=== PATIENT | female | born 1990 | race Caucasian/White ===

== ENCOUNTER → 2020-09-16 16:26 | Outpatient (CLI) | payer BC, SELFPAY | PROVIDERS: PCP Student in an Organized Health Care Education/Training Program; Visit Provider Obstetrics & Gynecology | DX: Z03.818 Encounter for observation for suspected exposure to other biological agents ruled out (principal) | CPT/HCPCS: 87635; C9803; U0002 ==

== ENCOUNTER 2020-09-18 18:55 | Inpatient (IN) | payer BC, SELFPAY ==
[2020-09-18 19:23] VITALS: BMI 32.6
[2020-09-18 19:27] VITALS: BP 157/88; PULSE 76; TEMP 37.2; O2SAT 97
[2020-09-18] MEDS: 0.9% Saline Lock 10 ML Syringe IV (19:30)
--- NOTE | 2020-09-18 19:32 | HP.PCM.OB_ITS ---
HPI - General General Date of Admission: 09/18/20 HPI Narrative SAM DIAZ, is a 29 F who presents at 40w6d by LMP for induction of labor for postdates. [facility] Medical History (Updated 09/18/20 @ 20:08 by Page Small) Anxiety Home Medications Tablet 1 tab PO/SL DAILY 09/18/20 [History Last Taken 09/18/20 11:00] Allergy/AdvReac Type Severity Reaction Status Date / Time No Known Allergies Allergy Verified 09/18/20 19:45 Surgical History (Updated 09/18/20 @ 20:08 by Page Small) History of surgery Social History Smoking Status: Never smoker History Elective abortions Hx Para 0 Spontaneous abortions Hx # Term Pregnancies Ectopic pregnancies Hx # Pregnancies Multiple births # of living children NST FHR Rate Baby A Baseline: 155 Variability:: Moderate Accelerations:: 15 x 15 Decelerations:: None FHR Category:: Category II Uterine Activity:: Irregular ROS Constitutional Constitutional: Reports systems reviewed and no addt'l complaints, except as documented; Denies headache(s) Eyes Eyes: Denies acute decrease in peripheral vision, blurry vision or change in vision ENT HEENT: Reports systems reviewed and no addt'l complaints, except as documented Cardiovascular Cardiovascular: Denies chest pain or dizziness Respiratory/Chest Respiratory/Chest: Denies cough, dyspnea, dyspnea on exertion, shortness of breath at rest or shortness of breath with exertion Gastrointestinal Gastrointestinal: Denies abdominal pain, diarrhea, nausea or vomiting Genitourinary Genitourinary: Denies abdominal discomfort or movement Musculoskeletal Musculoskeletal: Denies limited range of motion Integumentary Integumentary: Reports systems reviewed and no addt'l complaints, except as documented Neurologic Neurologic: Reports systems reviewed and no addt'l complaints, except as documented Psychiatric Psychiatric: Reports systems reviewed and no addt'l complaints, except as documented Endocrine Endocrinology: Reports systems reviewed and no addt'l complaints, except as documented Hematologic/Lymphatic Hematologic/Lymphatic: Reports systems reviewed and no addt'l complaints, except as documented Allergic/Immunologic Allergic/Immunologic: Reports systems reviewed and no addt'l complaints, except as documented Vital Signs Vital Signs Vital Signs: 09/18/20 19:27 Pulse Rate 76 Blood Pressure 157/88 H BP Systolic 157 BP Diastolic 88 Physical Exam Narrative GBS negative 1hr GCT 95 nml RPR negative Rubella Immune HBsAG negative HepC negative HIV negative O positive, antibody screen negative GC/CT negative Urine tox screen negative COVID 19 negative on 09/09/20 Const alert and oriented x3 General Appearance: cooperative Orientation / Consciousness: awake, oriented to person, oriented to place and oriented to time Exam Limitations: no limitations HEENT normocephalic Head and Scalp: normal to inspection, normocephalic and atraumatic Face and Sinus: normal facial exam Eyes General Eye: normal appearance of both eyes Neck full ROM Chest Chest: symmetrical chest wall rise Resp normal respiratory effort and normal air movement Auscultation: clear to auscultation bilaterally Cardio regular rate, regular rhythm, S1 normal heart sound, S2 normal heart sound, no murmurs, no rub, no gallops and no clicks GI normal to inspection, nondistended, normoactive bowel sounds and non-tender appearance of the vagina normal Narrative: Huntley catheter placed in cervical os, 30ml NS instilled, patient tolerated well. Bladder / Kidney Exam: no CVA tenderness Manual OB Exam: estimated gestational size appropriate, presentation cephalic, dilated 1.5, effaced 60 and station -2 Amniotic Fluid: no amniotic fluid noted Back/Spine normal ROM Extremity normal to inspection and full ROM Skin no rashes or lesions noted Neuro oriented x3, CN's II-XII intact bilaterally and moves all extremities Sensorium / Orientation: awake, alert and oriented to person Motor Exam: clonus absent Deep Tendon Reflexes: Rt Patellar (L4): 2+ and Lt Patellar (L4): 2+ Assessment & Plan (1) Nulliparity: (2) Family history of hemophilia: (3) History of anxiety: (4) S/P PDA repair: (5) Encounter for induction of labor: (6) Post-dates : PLAN: 1) Admit to labor and delivery for postdates Induction of labor 2) IV and routine labs. 3) BP elevated upon admission, will order preeclampsia labs 4) Cytotec and huntley for cervical ripening and then will start pitocin 5) Pain management and may have epidural upon request 6) COVID 19 negative 7) GBS negative 8) Continuous EFM 9) collaborative physician and updated on patient status and admission.
[2020-09-18 19:36] VITALS: BP 148/75; PULSE 82
[2020-09-18 19:46] LABS: Absolute Lymphocyte Count 2.23 X10^3/uL (0.83-4.51); Absolute Neutrophil Count 7.5 X10^3/uL (2.0-7.7); Basophil# 0.03 X10^3/uL; Basophil% 0.3 % (0-1); Eosinophil# 0.22 X10^3/uL; Hematocrit 36.6 % (37-47); Lymphocyte # 2.23 X10^3/ul (0.83-4.51); Lymphocyte % 20.5 % (19-41); Mean Corp Hgb Conc 32.8 g/dL (32-36); Mean Corpuscular Hgb 29.9 pg (27.0-32.0); Mean Corpuscular Volume 91.3 fL (81-99); Mean Platelet Vol. 13.7 fl (6.2-12.0); Monocyte# 0.85 X10^3/uL; Monocyte% 7.8 % (0-10); NRBC Flagged by Analyzer 0 % (0-5); Neutrophil % 68.9 % (47-70); POSITIVE MORPHOLOGY YES; Platelet Count 142 K/mm3 (150-450); RBC Distribution Width CV 13.2 % (11.6-14.6); RBC Distribution Width SD 42.7 fl (35.1-43.9); Red Blood Count 4.01 M/mm3 (4.2-5.4); White Blood Count 10.9 K/mm3 (4.4-11.0)
[2020-09-18 19:54] LABS: Differential Indicated SCAN CRITERIA MET
[2020-09-18] MEDS: 0.9% Normal Saline Single 100 ML IV.SOLN. INTRA-UTER (19:55)
[2020-09-18 20:20] LABS: AST(SGOT) 19 U/L (15-37); Alanine Aminotransfer ALT/SGPT 14 U/L (13-56); Creatinine, Serum 1.03 mg/dL (0.55-1.02); Differential Comment SCANNED; EST Glomerular Filtration Rate 67 mL/min (>60); Est Glom Filt Rate - Afr Amer 81 mL/min (>60); Estimated Creatinine Clearance 69.59 ml/min; LDH 169 U/L (84-246); Uric Acid 7.1 mg/dL (2.6-6.0)
[2020-09-18 20:39] VITALS: BP 133/73; PULSE 64
[2020-09-18 21:12] LABS: Protein, Urine (Random) 54.3 mg/dL (<11.9); Protein:Creat Ratio 1607 mg/g CRE (0-200)
[2020-09-18 22:04] VITALS: BP 137/68; PULSE 75; TEMP 37.2
[2020-09-18 22:59] VITALS: O2SAT 96
[2020-09-18 23:00] VITALS: BP 126/60; PULSE 60; TEMP 36.9; O2SAT 96
[2020-09-19] VITALS (73 sets, daily range): BP systolic 115–170; BP diastolic 56–95; PULSE 64–137; RESP 14–16; TEMP 36.4–37.4; O2SAT 82–99
[2020-09-19] MEDS: Lactated Ringers 1,000 ML 50 ML IV (00:17)
[2020-09-19] MEDS: 0.9% Saline Lock 10 ML Syringe IV (00:17)
[2020-09-19] MEDS: Oxytocin 30 units/NS 500 ml 30 UNITS/500 ML IV.SOLN IV (00:17)
[2020-09-19] MEDS: Mag Hydrox/Al Hydrox/Simeth 30 ML UDC PO (03:50)
[2020-09-19] MEDS: Lactated Ringers 500 ML 999 ML IV (06:00)
[2020-09-19] MEDS: fentaNYL-bupivacaine (epidural) 100 ML BAG EPIDURAL ×2 (07:02→12:42)
[2020-09-19] MEDS: Lactated Ringers 1,000 ML 200 ML IV ×2 (10:50→16:03)
[2020-09-19] MEDS: DiphenhydrAMINE 50 MG/ML Syringe 25 MG IV (14:47)
--- NOTE | 2020-09-19 19:07 | PN_ITS ---
Progress Note Patient's pain is getting progressively worse throughout the day. Started out as pressure. Pain is constant. Attempt was made to replace the epidural, her pain was still poorly controlled. She was 7 when she had artificial rupture membranes this morning. Progressed very slowly to anterior lip. Is been anterior lip for over an hour and station is still -1. At this point, I discussed with the patient she could try to attempt to push and I could see if I could reduce the anterior lip. However, when I checked her with a contraction a nd try to reduce it I was unable to do so. Discussed with the patient the other option would for you to proceed with a section. Patient elects to proceed with section. We will consult with anesthesia as to plan for anesthesia during the delivery.
[2020-09-19] MEDS: Cefazolin 2 GM in 0.9% Normal Saline 100 ML IV (19:18)
[2020-09-19] MEDS: Carboprost Tromethamine 250 MCG/ML Ampul IM ×2 (19:47→19:51)
[2020-09-19] MEDS: Methylergonovine 0.2 MG/ML Ampul IM (19:49)
[2020-09-19] MEDS: Oxytocin 30 units/NS 500 ml 30 UNITS/500 ML IV.SOLN 167 UNITS IV (20:57)
[2020-09-19] MEDS: Ketorolac 30 MG/ML Syringe IV (21:36)
[2020-09-19] MEDS: Lactated Ringers 1,000 ML 100 ML IV (23:55)
[2020-09-20] VITALS (7 sets, daily range): BP systolic 105–144; BP diastolic 56–78; PULSE 85–103; RESP 16–18; TEMP 36.1–36.7; O2SAT 95–97
[2020-09-20] MEDS: Acetaminophen 500 MG Tablet 1000 MG PO ×4 (00:07→17:55)
[2020-09-20] MEDS: Ketorolac 30 MG/ML Syringe IV ×3 (03:39→16:07)
--- NOTE | 2020-09-20 04:07 | EX.PCM.OBRPT ---
Maternal Data Information Final KENNEY: 09/12/20 Final KENNEY Source: US <20 weeks Gestational age: 41 weeks Details Operative Information Date of Procedure: 09/19/20 Pre-Operative Diagnosis: arrest of descent and dilation Post-Operative Diagnosis: same Classification: RORY Procedure Type: low transverse ethylene plant helper #1: Debra Lazcano Type of Anesthesia: General Anesthesiologist: Aj Silver Special Medications: none Antibiotic Given: Ancef 2 grams IV x1 and Zithromax 500 mg/5 mL X1 Drain: Estes to straight drain Estimated Blood Loss: 1000 Fluids Replaced: 1200 Findings Description of Procedure: The patient was taken to the operating room. She was prepped and draped in the dorsal supine position with a leftward tilt. A Pfannenstiel skin incision was made approximately 2 cm above the symphysis pubis and carried through to underlying layer fascia with the scalpel. The fascia was incised incised in the midline and extended laterally with blunt dissection. The rectus muscles were in the midline and the peritoneum was entered [bluntly]. The peritoneal incision was stretched and the bladder blade was placed. The uterine incision was made in a low transverse fashion with the scalpel and extended superiorly and inferiorly with blunt dissection. [The amniotic membranes were ruptured bluntly and clear amniotic fluid returned]. The infant's head was brought to the incision in the flexed position and delivered without difficulty. The remainder of the was delivered with gentle traction and fundal pressure in the standard fashion. The mouth and nares were bulb suctioned. The cord was clamped and cut as the infant was stimulated. [Cord clamping was delayed]. The infant was handed off to the waiting nursing staff. The placenta was delivered with fundal massage and gentle traction in the standard fashion. The uterus was exteriorized and cleared of all clots and debris. The uterine incision was closed with #1 Vicryl in a running locked fashion. [A second layer of the same suture was used in an imbricating fashion.] The incision was examined and was found to be hemostatic. Vigorous uterine massage was being given during this time. The uterus was very atonic. Patient was given a dose of IM Hemabate. Pitocin was run wide open. The uterus was still very atonic. A dose of Methergine IM was given. After several minutes the uterus was still somewhat atonic and she was given 1 dose of Hemabate directly into the myometrium. The uterus then began to firm. The incision itself was hemostatic and the uterus remained firm. The uterus was placed back into the peritoneal cavity and hemostasis was again confirmed. Sapna was placed over the uterine incision. The rectus muscles were examined and any bleeding was Bovie cauterized. [The parietal peritoneum and rectus muscles were closed en bloc with an 0 Vicryl running suture]. The surgical teams outer gloves were then changed. The rectus fascia was examined and any bleeding was Bovie cauterized and the rectus fascia was closed with [1 Vicryl] suture in a running standard fashion. The subcutaneous tissue was examining and any bleeding was Bovie cauterized. [The subcutaneous tissue was reapproximated with 3-0 Vicryl suture.] The skin was closed in a subcuticular fashion [by the CONDUCTOR AND ENGINEER with me present in the labor and delivery suite]. [I performed the remainder of the procedure with assistance]. All sponge, lap, and needle counts were correct. The patient was taken to her room for recovery in a stable condition. Start time: 1940 Delivery time: 1942 End time:2023 Presentation: Positive for Vertex Amniotic Membrane Rupture Type: Artificial Amniotic Fluid Description: Clear Placental Delivery Description: Spontaneous Placenta Disposition: [facility] Cord Vessel Description: 3 Vessels Cord Entanglement: None A Gender: Female (Yuliet Martino) (1 minute): 8 (5 minute): 9 Delayed Cord Clamping: Yes Complications Complications: none Admit VTE Documentation VTE Present on Admission: No VTE Mechan Device Prophylaxis: SCD's VTE Pharm Prophylaxis Ordered: Yes
[2020-09-20 06:09] LABS: Hemoglobin 8.1 g/dL (12.0-15.0); Mean Corp Hgb Conc 33.8 g/dL (32-36); Mean Corpuscular Hgb 31.4 pg (27.0-32.0); Platelet Count 119 K/mm3 (150-450); RBC Distribution Width CV 13.4 % (11.6-14.6); RBC Distribution Width SD 45.3 fl (35.1-43.9); Red Blood Count 2.58 M/mm3 (4.2-5.4); White Blood Count 23.4 K/mm3 (4.4-11.0)
[2020-09-20] MEDS: Enoxaparin 40 MG/0.4 ML Syringe SC (08:26)
[2020-09-20] MEDS: Senna/Docusate Sodium 1 Tablet PO (10:16)
--- NOTE | 2020-09-20 12:41 | PCM.PN.OB ---
Subjective Subjective Narrative Patient seen at bedside. Skin to skin with . Feeling good. Pain controlled. Has not ambulated much to date. Estes out this morning. Denies any CP, SOB or dizziness. going well. Objective Data Objective Data Vital Signs: Vital Signs Temp Pulse Resp BP Pulse Ox 97.1 F L 88 18 115/73 96 09/20/20 12:05 09/20/20 12:05 09/20/20 12:05 09/20/20 12:05 09/20/20 12:05 Oxygen Delivery Method Room Air Weight: 190 lb 4 oz Body Mass Index (BMI) 32.6 Intake & Output: Intake and Output for Last 24 Hours 09/18/20 09/19/20 09/20/20 23:59 23:59 23:59 Intake Total 6065.70 / 6065.70 418.33 / 418.33 Output Total 700 / 700 200 / 200 Balance 5365.70 / 5365.70 218.33 / 218.33 Lab / Micro Data Result Diagrams: 09/20/20 06:00 09/18/20 19:30 Labs: Laboratory Results - last 24 hr 09/20/20 06:00 WBC 23.4 H RBC 2.58 L Hgb 8.1 L Hct 24.0 L MCV 93.0 MCH 31.4 MCHC 33.8 RDW Std Deviation 45.3 H RDW Coeff of Humberto 13.4 Plt Count 119 L MPV 13.0 H Assessment & Plan (1) delivery delivered: (2) Mother currently breast-feeding: PLAN: POD #1 Routine care Ambulate Pain control support Anticipate discharge home tomorrow
[2020-09-20] MEDS: 0.9% Saline Lock 10 ML Syringe IV (16:11)
--- NOTE | 2020-09-20 16:32 | CASEMGMT ---
Social Work Labor and Delivery Chart reviewed. Presented to patient's room for social work assessment. Patient sleeping soundly and did not move when medical social worker entered the room. Support person sitting on couch and baby sleeping in crib. Informed visitor would be back at a later time so as to allow patient time to rest. -CHRIS Vanessa, FUNCTIONAL ARCHITECT
[2020-09-20] MEDS: Naproxen 250 MG Tablet 500 MG PO (22:01)
[2020-09-21] MEDS: Acetaminophen 500 MG Tablet 1000 MG PO ×4 (00:17→17:40)
[2020-09-21 02:15] VITALS: BP 113/64; PULSE 73; RESP 16; TEMP 36.6; O2SAT 96
[2020-09-21] MEDS: Naproxen 250 MG Tablet 500 MG PO ×3 (06:25→22:00)
[2020-09-21 09:07] VITALS: BP 140/87; PULSE 106; RESP 14; TEMP 36.8; O2SAT 96
--- NOTE | 2020-09-21 09:11 | PCM.PROGNOTE ---
Subjective Subjective Doing well per patient and nursing staff. Ambulating and taking PO without difficulty. Voiding and passing flatus. Pain controlled. without difficulty. Denies headache, visual changes, chest pain, shortness of breath, dizziness, leg pain or increased vaginal bleeding. Objective Data Objective Data Vital Signs: Vital Signs Temp Pulse Resp BP Pulse Ox 98.3 F 106 H 14 140/87 H 96 09/21/20 09:07 09/21/20 09:07 09/21/20 09:07 09/21/20 09:07 09/21/20 09:07 Oxygen Delivery Method Room Air Weight: 190 lb 4 oz Body Mass Index (BMI) 32.6 Intake & Output: Intake and Output for Last 24 Hours 09/19/20 09/20/20 09/21/20 23:59 23:59 23:59 Intake Total 6065.70 / 6065.70 418.33 / 418.33 Output Total 700 / 700 675 / 675 Balance 5365.70 / 5365.70 -256.67 / -256.67 Lab / Micro Data Result Diagrams: 09/21/20 09:05 09/18/20 19:30 Physical Exam Const alert and oriented x3 General Appearance: cooperative Orientation / Consciousness: awake, oriented to person, oriented to place and oriented to time Exam Limitations: no limitations HEENT normocephalic Head and Scalp: normal to inspection, normocephalic and atraumatic Face and Sinus: normal facial exam Eyes General Eye: normal appearance of both eyes Neck full ROM Chest Chest: symmetrical chest wall rise Resp normal respiratory effort and normal air movement Auscultation: clear to auscultation bilaterally Cardio regular rate, regular rhythm, S1 normal heart sound, S2 normal heart sound, no murmurs, no rub, no gallops and no clicks GI non-tender GI Narrative: Fundus firm 2 below U. Dressing dry and intact. Auscultation: hypoactive bowel sounds appearance of the vagina normal Bladder / Kidney Exam: no CVA tenderness Back/Spine normal ROM Extremity normal to inspection and full ROM Skin no rashes or lesions noted Neuro oriented x3, CN's II-XII intact bilaterally and moves all extremities Sensorium / Orientation: awake, alert and oriented to person Motor Exam: clonus absent Deep Tendon Reflexes: Rt Patellar (L4): 2+ and Lt Patellar (L4): 2+ Assessment & Plan Assessment/Plan (1) Mother currently breast-feeding: (2) delivery delivered: (3) Acute blood loss anemia: PLAN: 1) Routine postoperative care 2) BP mild range, asymptomatic 3) Hgb 8.1 to 7.6, asymptomatic, will start ferrous sulfate 325mg PO BID. Repeat CBC in am 4) Pain management 5) Planning D/C home tomorrow. Will keep another day due to acute blood loss and mild range BP. consulted and agrees with plan.
[2020-09-21 09:12] LABS: Hematocrit 22.7 % (37-47); Hemoglobin 7.6 g/dL (12.0-15.0); Mean Corp Hgb Conc 33.5 g/dL (32-36); Mean Corpuscular Hgb 31.3 pg (27.0-32.0); Mean Corpuscular Volume 93.4 fL (81-99); Mean Platelet Vol. 12.5 fl (6.2-12.0); Platelet Count 141 K/mm3 (150-450); RBC Distribution Width CV 13.9 % (11.6-14.6); RBC Distribution Width SD 46.5 fl (35.1-43.9); Red Blood Count 2.43 M/mm3 (4.2-5.4); White Blood Count 18.6 K/mm3 (4.4-11.0)
[2020-09-21] MEDS: Enoxaparin 40 MG/0.4 ML Syringe SC (10:07)
[2020-09-21] MEDS: Senna/Docusate Sodium 1 Tablet PO (10:07)
[2020-09-21] MEDS: Ferrous Sulfate 325 MG Tablet PO ×2 (12:24→17:40)
[2020-09-21 13:51] VITALS: BP 138/73; PULSE 74; RESP 14; TEMP 37.2
[2020-09-21 20:26] VITALS: BP 125/69; PULSE 73; RESP 16; TEMP 36.7
[2020-09-22] MEDS: Acetaminophen 500 MG Tablet 1000 MG PO ×3 (00:22→12:58)
[2020-09-22 02:48] VITALS: BP 120/58; PULSE 83; RESP 16; TEMP 36.4
[2020-09-22 04:33] LABS: Absolute Neutrophil Count 11.7 X10^3/uL (2.0-7.7); Basophil# 0.04 X10^3/uL; Basophil% 0.3 % (0-1); Eosinophil# 0.23 X10^3/uL; Eosinophils% 1.5 % (0-5); Hematocrit 20.9 % (37-47); Hemoglobin 6.9 g/dL (12.0-15.0); Mean Corpuscular Hgb 31.8 pg (27.0-32.0); Mean Corpuscular Volume 96.3 fL (81-99); Mean Platelet Vol. 11.8 fl (6.2-12.0); Monocyte# 0.66 X10^3/uL; Monocyte% 4.4 % (0-10); NRBC Flagged by Analyzer 0.1 % (0-5); Neutrophil # 11.71 X10^3/uL (2.7-7.7); Neutrophil % 78.1 % (47-70); Platelet Count 159 K/mm3 (150-450); RBC Distribution Width CV 14.4 % (11.6-14.6); RBC Distribution Width SD 49.3 fl (35.1-43.9); Red Blood Count 2.17 M/mm3 (4.2-5.4)
[2020-09-22] MEDS: Naproxen 250 MG Tablet 500 MG PO ×2 (06:32→14:10)
[2020-09-22 08:46] VITALS: BP 152/92; PULSE 92; RESP 18; TEMP 36.8; O2SAT 97
--- NOTE | 2020-09-22 09:38 | PCM.DC ---
Discharge Instructions Diet Discharge Diet: No restrictions Activity Discharge Activity: Return to Normal Activity, May Not Drive (for 2 weeks.), May not drive while taking narcotic pain medications., May Shower and May Take a Tub Bath (in 7 days.) May resume sexual activity in: 4-6 weeks Lifting Restrictions: 20 pounds Additional Activity Instructions:: Nothing in the vagina for 4-6 weeks. You may return to work/school in 6 weeks. Dressing / Incision Call your doctor if your incision/area has: Continuous Slow Oozing, Sudden Increased Bleeding, Increased Pain/ Swelling, Increased Redness and Foul Smelling Discharge Call your doctor if you observe: Fever of 101 or Higher and Using more than one pad per hour (for 2 hours) Suture Line Care: Avoid Pulling/Pushing and Avoid Pinching/Bending Cleanse incision/area with: Keep Dressing Clean & Dry Follow Up Care Please Follow Up With: Kenna Chadwick MD When: Call to make an appointment for an incision check in 1-2 [phone]. You will need a post check in 6 weeks. Test Results: Test results from this visit will be discussed in further detail at your follow-up appointment, if applicable. Discharge Plan Admission Admit Date/Time: 09/18/20 18:55 Attending Provider: Kenna Chadwick Primary Care Provider: Michel Lehman Discharge Orders/Prescriptions Prescriptions: New acetaminophen [Tylenol Extra Strength] 500 mg tablet 1,000 mg PO Q6H PRN MDD 4000 mg PRN (Reason: pain) Qty: 30 RF: 0 ibuprofen [ibuprofen] 600 MG tablet 600 mg PO Q6H PRN (Reason: Pain) Qty: 60 RF: 1 oxycodone 5 MG tablet 5 mg PO Q6H PRN PRN (Reason: severe pain) 7 Days Qty: 20 RF: 0 Continued Tablet 1 tab PO/SL DAILY RF: 0 Referrals / Follow Up: Michel Lehman DO [Primary Care Provider] -
--- NOTE | 2020-09-22 09:42 | PN.OBGYN_ITS ---
Subjective Subjective Pain well controlled. Average lochia. Denies SOB/palpitations/ROBBINS/dizziness or lightheadedness. +Flatus, no BM. Objective Data Objective Data Vital Signs: Vital Signs Temp Pulse Resp BP Pulse Ox 98.3 F 92 18 152/92 H 97 09/22/20 08:46 09/22/20 08:46 09/22/20 08:46 09/22/20 08:46 09/22/20 08:46 Oxygen Delivery Method Room Air Weight: 86.296 kg Body Mass Index (BMI) 32.6 Intake & Output: Intake and Output for Last 24 Hours 09/20/20 09/21/20 09/22/20 23:59 23:59 23:59 Intake Total 418.33 / 418.33 Output Total 675 / 675 Balance -256.67 / -256.67 Lab / Micro Data Result Diagrams: 09/22/20 04:15 09/18/20 19:30 Labs: Laboratory Results - last 24 hr 09/22/20 04:15 WBC 15.0 H RBC 2.17 L Hgb 6.9 L Hct 20.9 L MCV 96.3 MCH 31.8 MCHC 33.0 RDW Std Deviation 49.3 H RDW Coeff of Humberto 14.4 Plt Count 159 MPV 11.8 Immature Gran % (Auto) 1.700 H Neut % (Auto) 78.1 H Lymph % (Auto) 14.0 L [place] % (Auto) 4.4 Eos % (Auto) 1.5 Baso % (Auto) 0.3 Absolute Neuts (auto) 11.7 H Absolute Lymphs (auto) 2.10 Nucleated RBC % 0.1 Physical Exam Const alert General Appearance: cooperative GI GI Narrative: soft, moderate distention, fundus firm, appropriately tender. Abdominal bandage clean dry and intact Palpation: soft and tender other (appropriately, no firmness appreaciated, no r ebound or guarding) Assessment & Plan (1) Acute blood loss anemia: COMMENT: due to intraop hemorrhage from atony and likely intraperitoneal bleeding . Clinically stable (2) delivery delivered: PLAN: Tolerating anemia well. Ready for d/c. However, d/w her would recommend IV fe x 1. S he is comfortable with this plan. Return/call for symptoms of severe preeclampsia or anemia. She is comfortable w/ plan
--- NOTE | 2020-09-22 09:48 | DS.PCM_ITS ---
Providers Date of Admission: 09/18/20 Primary Care Physician: Dr. Michel Lehman, Reason For Visit: PRIMARY C SECTION Diagnosis Discharge Diagnosis (1) Acute blood loss anemia: Status: Acute Code(s): D62 - Acute posthemorrhagic anemia (2) delivery delivered: Status: Acute Code(s): O82 - Encounter for delivery without indication Medications at Discharge Home Medications Tablet 1 tab PO/SL DAILY 09/18/20 acetaminophen [Tylenol Extra Strength] 1,000 mg PO Q6H PRN PRN #30 tab MDD 4000 mg 09/22/20 ibuprofen 600 mg PO Q6H PRN #60 tablet 09/22/20 oxycodone 5 mg PO Q6H PRN PRN 7 Days #20 tablet 09/22/20 Hospital Course Operations - (Primary low transverse section Via Pfannenstiel skin incision) Procedures None Summary of Care Provided Hospital Course: She was admitted for induction of labor for being approximately 41 weeks gestation. She had a prolonged labor course. She had arrest of descent and dilation and a nonfunctioning epidural. Primary low transverse section was then performed on 09/19/2020. She had some intrapartum at felicit[place] with a hemorrhage resulting in acute blood loss anemia. She tolerated the procedure well. She likely had some ongoing intraperitoneal bleeding postoperatively and trended down to hemoglobin of 6.9 on 09/22/2020. However she was asymptomatic and tolerating the anemia well. She was instructed on signs and symptoms of anemia as well as preeclampsia to return for. She was also diagnosed with mild preeclampsia without severe features. She received 1 dose of IV iron on postoperative day #3. She was then discharged home with routine instructions and prescriptions and to follow-up in the office within 1 week or as needed. ABG / Lab / Microbiology Data Result Diagrams: 09/22/20 04:15 09/18/20 19:30 Laboratory: Laboratory Results - last 24 hr 09/22/20 04:15 WBC 15.0 H RBC 2.17 L Hgb 6.9 L Hct 20.9 L MCV 96.3 MCH 31.8 MCHC 33.0 RDW Std Deviation 49.3 H RDW Coeff of Humberto 14.4 Plt Count 159 MPV 11.8 Immature Gran % (Auto) 1.700 H Neut % (Auto) 78.1 H Lymph % (Auto) 14.0 L [place] % (Auto) 4.4 Eos % (Auto) 1.5 Baso % (Auto) 0.3 Absolute Neuts (auto) 11.7 H Absolute Lymphs (auto) 2.10 Nucleated RBC % 0.1 D/C Instructions Discharge Diet: No restrictions Discharge Activity: Return to Normal Activity, May Not Drive (for 2 weeks.), May not drive while taking narcotic pain medications., May Shower and May Take a Tub Bath (in 7 days.) May resume sexual activity in: 4-6 weeks Additional Activity Instructions: Nothing in the vagina for 4-6 weeks. You may return to work/school in 6 weeks. Call your doctor if your incision/area has: Continuous Slow Oozing, Sudden Increased Bleeding, Increased Pain/ Swelling, Increased Redness and Foul Smelling Discharge Call your doctor if you observe: Fever of 101 or Higher and Using more than one pad per hour (for 2 hours) Suture Line Care: Avoid Pulling/Pushing and Avoid Pinching/Bending Cleanse incision/area with: Keep Dressing Clean & Dry Please Follow Up With: Kenna Chadwick MD When: Call to make an appointment for an incision check in 1-2 [phone]. You will need a post check in 6 weeks. Meaningful Use Info Meaningful Use Diagnoses (Choose all that apply): None applicable Discharge Plan Admission Admit Date/Time: 09/18/20 18:55 Attending Provider: Kenna Chadwick Primary Care Provider: Michel Lehman Discharge Orders/Prescriptions Prescriptions: New acetaminophen [Tylenol Extra Strength] 500 mg tablet 1,000 mg PO Q6H PRN MDD 4000 mg PRN (Reason: pain) Qty: 30 RF: 0 ibuprofen [ibuprofen] 600 MG tablet 600 mg PO Q6H PRN (Reason: Pain) Qty: 60 RF: 1 oxycodone 5 MG tablet 5 mg PO Q6H PRN PRN (Reason: severe pain) 7 Days Qty: 20 RF: 0 Continued Tablet 1 tab PO/SL DAILY RF: 0 Referrals / Follow Up: Michel Lehman DO [Primary Care Provider] -
[2020-09-22 10:30] VITALS: BP 129/49; PULSE 64
[2020-09-22] MEDS: Senna/Docusate Sodium 1 Tablet PO (10:43)
[2020-09-22] MEDS: Enoxaparin 40 MG/0.4 ML Syringe SC (10:43)
[2020-09-22] MEDS: 0.9% Saline Lock 10 ML Syringe IV (11:21)
[2020-09-22] MEDS: Ferrous Sulfate 325 MG Tablet PO (12:58)
[2020-09-22 14:32] VITALS: BP 138/79; PULSE 77; RESP 16; TEMP 36.8
== END 2020-09-22 15:00 | disposition home or self-care (01) | DRG 787 ==
PROVIDERS: Advanced Practice Midwife; Admitting Provider Obstetrics & Gynecology; PCP Student in an Organized Health Care Education/Training Program; Visit Provider Obstetrics & Gynecology
DX: O62.1 Secondary uterine inertia (principal); D62 Acute posthemorrhagic anemia; O63.9 Long labor, unspecified; O48.0 Post-term pregnancy; Z3A.41 41 weeks gestation of pregnancy; Z37.0 Single live birth; O99.02 Anemia complicating childbirth; O14.04 Mild to moderate pre-eclampsia, complicating childbirth
CPT/HCPCS: 59025; 59050; 82565; 82570; 83615; 84156; 84450; 84460; 84550; 85025; 85027; 86850; 86900; 86901; 99218; J1756; J7120; A4216; G0378; J2405; J3490

== ENCOUNTER 2023-11-20 05:13 | Inpatient (IN) | payer BC, SELFPAY ==
--- NOTE | 2023-11-06 11:35 | HP.PCM_ITS ---
History and Physical Date of Admission: 11/20/23 HPI: The patient is a 33 year old female presenting for pre-operative visit. She is scheduled for , for previous c/s nad 39 weeks on 11/20/23. Procedure discussed along with risks, benefits and complications. Other alternatives discussed for management. Consent form signed? Yes. PAST MEDICAL HISTORY PAST MEDICAL HISTORY Diagnosis Date ? Anemia ? anxiety ? Chlamydia 2012 ? History of pre-eclampsia in prior , currently 04/11/2023 ? Preeclampsia ? S/P PDA repair 1990 ? Seasonal allergies Immunotherapy with Dr. Phillips ENT PAST SURGICAL HISTORY PAST SURGICAL HISTORY Procedure Laterality Date ? DELIVERY ONLY 09/19/2020 [facility] ? PDA CLOSURE 1990 CURRENT MEDICATIONS Current Outpatient Medications Medication Sig Dispense Refill ? aspirin, enteric coated (ASPIRIN, ENTERIC COATED) 81 mg EC tablet Take 2 tablets by mouth once daily. 60 tablet 5 ? Bacillus coagulans/inulin (PROBIOTIC WITH PREBIOTIC ORAL) ? Gjpoutwq-Ia-Lir-Fe-FA ( VITAMIN) tab Take 1 tablet by mouth. No current facility-administered medications for this visit. ALLERGIES: Seasonal Allergies PERSONAL HISTORY: SOCIAL HISTORY Social History Tobacco Use ? Smoking status: Never ? Smokeless tobacco: Never Vaping Use ? Vaping Use: Never used Substance Use Topics ? Alcohol use: Not Currently Comment: Occasionally ? Drug use: No FAMILY HISTORY: FAMILY HISTORY FAMILY HISTORY Problem Relation Age of Onset ? No Known Problems Mother ? other (aortic dissection) Father ? No Known Problems Sister ? COPD Maternal Grandmother ? Kidney Disease Maternal Grandmother ? No Known Problems Maternal Grandfather ? No Known Problems Paternal Grandmother ? No Known Problems Paternal Grandfather ? No Known Problems Daughter REVIEW OF SYMPTOMS: GENERAL: denies fevers or chills ENDOCRINOLOGY: has not been on steroids Cardiology : denies palpitations or chest pain Respiratory: denies SOB or cough Hematology: denies history of prolonged bleeding or easy bruising or VTE Allergy: Denies history of personal or family history of allergy to anesthesia PHYSICAL EXAMINATION: VITALS: Blood pressure 108/72, weight 83 kg (183 lb), last menstrual period 02/19/2023. GENERAL: The patient is well nourished, well hydrated in no acute distress. , The patient is oriented to time, place, and person. NECK: Supple. No lynphadenopathy, normal thyroid, no thyromegaly. LUNGS: Clear to auscultation bilaterally. no wheezes, rhonchi or rales HEART: Regular rate and rhythm, Normal heart sounds, and No murmurs or gallops GENITALIA: Normal external genitalia, Urethral meatus normal, Bladder nontender, normal vagina and normal vaginal tone, normal cervix, normal uterus, size and consistency, normal adnexa without masses or tenderness, and perineum WNL IMPRESSION: Estimated Date of Delivery: 11/26/23 PLAN: The risks/benefits/alternatives and personal involved for the planned c- section were reviewed with the patient. Her questions were answered to her satisfaction and she desires to proceed. Consent was signed. I reviewed with her postop instructions and expectations. I have reviewed and updated past medical and surgical history, medications and allergies Assessment & Plan Assessment/Plan (1) 39 weeks gestation of : (2) Supervision of other high risk pregnancies, third trimester: (3) Previous delivery affecting :
[2023-11-20] VITALS (20 sets, daily range): BP systolic 95–128; BP diastolic 51–76; PULSE 58–80; RESP 16; TEMP 36.1–36.6; O2SAT 94–98; BMI 32.2
[2023-11-20] MEDS: Lactated Ringers 1,000 ML 999 ML IV (05:50)
[2023-11-20] MEDS: Acetaminophen 500 MG Tablet 1000 MG PO ×3 (05:57→18:01)
[2023-11-20 05:58] LABS: Absolute Lymphocyte Count 2.04 X10^3/uL (0.83-4.51); Absolute Neutrophil Count 6.4 X10^3/uL (2.0-7.7); Basophil# 0.02 X10^3/uL; Basophil% 0.2 % (0-1); Eosinophil# 0.08 X10^3/uL; Eosinophils% 0.9 % (0-5); Hematocrit 37.4 % (37-47); Hemoglobin 12.8 g/dL (12.0-15.0); Lymphocyte # 2.04 X10^3/ul (0.83-4.51); Lymphocyte % 22.4 % (19-41); Mean Corp Hgb Conc 34.2 g/dL (32-36); Mean Corpuscular Hgb 31.9 pg (27.0-32.0); Mean Corpuscular Volume 93.3 fL (81-99); Mean Platelet Vol. 12.3 fl (6.2-12.0); Monocyte% 6.6 % (0-10); NRBC Flagged by Analyzer 0 % (0-5); Neutrophil # 6.35 X10^3/uL (2.7-7.7); Neutrophil % 69.6 % (47-70); Platelet Count 154 K/mm3 (150-450); RBC Distribution Width CV 12.9 % (11.6-14.6); RBC Distribution Width SD 44.1 fl (35.1-43.9); Red Blood Count 4.01 M/mm3 (4.2-5.4); White Blood Count 9.1 K/mm3 (4.4-11.0)
[2023-11-20] MEDS: Lactated Ringers 1,000 ML 150 ML IV (06:51)
[2023-11-20] MEDS: Sodium Citrate/Citric Acid 30 ML UDC PO (07:10)
--- NOTE | 2023-11-20 07:14 | PCM.POST.ANE ---
Anesthesia: Postop Eval I Current Vital Signs Temperature: 98 F Pulse Rate: 60 Blood Pressure: 120/45 Respiratory Rate: 12 Pulse Ox: 98
[2023-11-20] MEDS: Cefazolin 2 GM in 0.9% Normal Saline (100mL Bag) 100 ML IV (07:20)
[2023-11-20 07:31] LABS: Syphilis Antibodies Non-reactive
--- NOTE | 2023-11-20 08:13 | EX.PCM.OBRPT ---
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 She was prepped and draped in the dorsal supine position with a leftward tilt. A Pfannenstiel skin incision was made approximately 2 cm above the symphysis pubis and carried through to underlying layer fascia with the scalpel. The fascia was incised incised in the midline and extended laterally with the Beck scissors. The fascia was dissected off the rectus muscles with blunt and sharp dissection. The rectus muscles were in the midline and the peritoneum was entered bluntly. The peritoneal incision was stretched and the bladder blade was placed. The uterine incision was made in a low transverse fashion with the scalpel and extended superiorly and inferiorly with blunt dissection. The amniotic membranes were ruptured bluntly and clear amniotic fluid returned. The 's head was brought to the incision in the flexed position and delivered without difficulty. The remainder of the was delivered with gentle traction and fundal pressure in the standard fashion. The mouth and nares were bulb suctioned. The cord was clamped and cut as the infant was stimulated. Cord clamping was delayed. The was handed off to the waiting nursing staff. The placenta was delivered with fundal massage and gentle traction in the standard fashion. The uterus was exteriorized and cleared of all clots and debris. The cervix was dilated with a ring forcep. The uterine incision was closed with #1 Vicryl in a running locked fashion. A kjhlka-dx-nllkc suture was needed in the left angle of the incision to obtain hemostasis. The incision was examined and was found to be hemostatic. The uterus was placed back into the peritoneal cavity and hemostasis was again confirmed. The rectus muscles were examined and any bleeding was Bovie cauterized. The parietal peritoneum and rectus muscles were closed en bloc with an 0 Vicryl running suture. The rectus fascia was examined and any bleeding was Bovie cauterized and the rectus fascia was closed with 1 Vicryl suture in a running standard fashion. The subcutaneous tissue was examining and any bleeding was Bovie cauterized. The subcutaneous tissue was reapproximated with 3-0 Vicryl suture. The skin was closed in a subcuticular fashion by the CHIEF CREDIT OFFICER with me present in the labor and delivery suite. I performed the remainder of the procedure with assistance. All sponge, lap, and needle counts were correct. The patient was taken to her room for recovery in a stable condition. Presentation: Positive for Vertex Amniotic Membrane Rupture Type: Artificial Amniotic Fluid Description: Clear Placental Delivery Description: Expressed Placenta Disposition: [facility] Specimen(s) Sent to Pathology: none Cord Vessel Description: 3 Vessels Cord Entanglement: None Infant A Gender: Female (1 minute): 8 (5 minute): 9 Delayed Cord Clamping: Yes Complications Complications: none
[2023-11-20] MEDS: Oxytocin 15 Units/NS 250ml 15 UNITS/250 ML IV.SOLN 83 UNITS IV (08:45)
[2023-11-20] MEDS: Ketorolac 30 MG/ML Syringe IV ×3 (09:43→22:05)
[2023-11-20] MEDS: Lactated Ringers 1,000 ML 100 ML IV ×2 (11:41→17:06)
[2023-11-20] MEDS: 0.9% Saline Lock 10 ML Syringe IV (22:05)
[2023-11-21 00:16] VITALS: BP 101/53; PULSE 53; RESP 16; TEMP 36.6; O2SAT 97
[2023-11-21] MEDS: Acetaminophen 500 MG Tablet 1000 MG PO ×4 (00:18→18:23)
[2023-11-21 04:21] VITALS: BP 97/54; PULSE 66; RESP 16; TEMP 36.5; O2SAT 97
[2023-11-21] MEDS: 0.9% Saline Lock 10 ML Syringe IV (04:24)
[2023-11-21] MEDS: Ketorolac 30 MG/ML Syringe IV (04:24)
[2023-11-21 04:45] LABS: Hematocrit 30.7 % (37-47); Hemoglobin 10.4 g/dL (12.0-15.0); Mean Corp Hgb Conc 33.9 g/dL (32-36); Mean Corpuscular Volume 91.6 fL (81-99); Mean Platelet Vol. 11.8 fl (6.2-12.0); Platelet Count 149 K/mm3 (150-450); RBC Distribution Width CV 12.8 % (11.6-14.6); RBC Distribution Width SD 42.3 fl (35.1-43.9); Red Blood Count 3.35 M/mm3 (4.2-5.4); White Blood Count 14.2 K/mm3 (4.4-11.0)
--- NOTE | 2023-11-21 08:26 | PCM.PN.OB ---
Subjective Subjective Feeling good. Minimal lochia. Ambulating and voiding without difficulty. Pain controlled. Breast feeding. Objective Data Objective Data Vital Signs: Vital Signs Temp Pulse Resp BP Pulse Ox O2 Del Method 97.7 F L 66 16 97/54 L 97 Room Air 11/21/23 04:21 11/21/23 04:21 11/21/23 04:21 11/21/23 04:21 11/21/23 04:21 11/21/23 04:21 Oxygen Delivery Method Room Air Weight: 85.275 kg Body Mass Index (BMI) 32.2 Intake & Output: Intake and Output for Last 24 Hours 11/19/23 11/20/23 11/21/23 23:59 23:59 23:59 Intake Total 2891.67 / 2891.67 Output Total 1200 / 1200 1300 / 1300 Balance 1691.67 / 1691.67 -1300 / -1300 Lab / Micro Data 11/21/23 04:37 Labs: Laboratory Results - last 24 hr 11/21/23 04:37: WBC 14.2 H, RBC 3.35 L, Hgb 10.4 L, Hct 30.7 L, MCV 91.6, MCH 31.0, MCHC 33.9, RDW Std Deviation 42.3, RDW Coeff of Humberto 12.8, Plt Count 149 L, MPV 11.8 Physical Exam Const alert General Appearance: cooperative GI GI Narrative: soft, moderate distention, fundus firm, appropriately tender. Abdominal bandage clean dry and intact Assessment & Plan (1) S/P : PLAN: Plan Routine care Plan d/c tomorrow
[2023-11-21] MEDS: Senna/Docusate Sodium 1 Tablet PO (10:42)
[2023-11-21 13:14] VITALS: BP 103/64; PULSE 65; RESP 16; TEMP 36.4; O2SAT 98
[2023-11-21] MEDS: Ibuprofen 600 MG Tablet PO ×2 (16:23→22:47)
[2023-11-21 20:25] VITALS: BP 106/66; PULSE 65; RESP 16; TEMP 36.7; O2SAT 97
[2023-11-22] MEDS: Acetaminophen 500 MG Tablet 1000 MG PO ×2 (00:22→06:19)
[2023-11-22 02:20] VITALS: BP 118/66; PULSE 55; RESP 18; TEMP 36.5; O2SAT 98
[2023-11-22] MEDS: Ibuprofen 600 MG Tablet PO ×2 (03:45→09:50)
--- NOTE | 2023-11-22 07:14 | PCM.PN.OB ---
Subjective Subjective Doing well. Pain control. Ambulating and voiding without difficulty. Breast feeding. Objective Data Objective Data Vital Signs: Vital Signs Temp Pulse Resp BP Pulse Ox O2 Del Method 97.7 F L 55 L 18 118/66 98 Room Air 11/22/23 02:20 11/22/23 02:20 11/22/23 02:20 11/22/23 02:20 11/22/23 02:20 11/22/23 02:20 Oxygen Delivery Method Room Air Weight: 85.275 kg Body Mass Index (BMI) 32.2 Intake & Output: Intake and Output for Last 24 Hours 11/20/23 11/21/23 11/22/23 23:59 23:59 23:59 Intake Total 2891.67 / 2891.67 Output Total 1200 / 1200 1300 / 1300 Balance 1691.67 / 1691.67 -1300 / -1300 Lab / Micro Data 11/21/23 04:37 ROS Constitutional Constitutional: Denies fatigue, fever(s) or malaise Cardiovascular Cardiovascular: Denies chest pain, dyspnea or lightheadedness Respiratory/Chest Respiratory/Chest: Denies cough or dyspnea Gastrointestinal Gastrointestinal: Denies change in bowel habits Neurologic Neurologic: Denies confusion, dizziness, headache(s), numbness or weakness Physical Exam Const alert General Appearance: cooperative GI GI Narrative: soft, moderate distention, fundus firm, appropriately tender. Abdominal bandage clean dry and intact Assessment & Plan (1) S/P : PLAN: Plan Discharge home.
--- NOTE | 2023-11-22 07:27 | PCM.DC.SUM ---
Providers Date of Admission: 11/20/23 Date of Discharge: 11/22/23 Primary Care Physician: Dr. Michel Lehman DO Reason For Visit: Diagnosis Discharge Diagnosis (1) S/P : Status: Acute Code(s): Z98.891 - History of uterine scar from previous surgery Plan Discharge home. Medications at Discharge Home Medications Tablet 1 tab PO/SL DAILY Check with primary doctor 09/18/20 Hospital Course Operations section Procedures None Summary of Care Provided Minutes Spent on Discharge: 23 Hospital Course: Scheduled repeat without complication. Normal course. Breast feeding. Physical Exam Const alert General Appearance: cooperative GI GI Narrative: soft, moderate distention, fundus firm, appropriately tender. Abdominal bandage clean dry and intact Weight / BMI Weight Weight: 85.275 kg Body Mass Index (BMI) 32.2 ABG / Lab / Microbiology Data 11/21/23 04:37 D/C Instructions Discharge Diet: No restrictions May resume sexual activity in: 4-6 weeks Lifting Restrictions: 20 pounds Additional Activity Instructions: Nothing in the vagina for 4-6 weeks. You may return to work/school in 6 weeks. Call your doctor if your incision/area has: Continuous Slow Oozing, Sudden Increased Bleeding, Increased Pain/ Swelling, Increased Redness and Foul Smelling Discharge Call your doctor if you observe: Fever of 101 or Higher and Using more than 1 pad per hour (for 2 hours) Suture Line Care: Avoid Pulling/Pushing and Avoid Pinching/Bending Cleanse incision/area with: Keep Dressing Clean & Dry Please Follow Up With: Kenna Chadwick MD When: Call to make an appointment for an incision check in 1-2 [phone]. You will need a post check in 6 weeks. Meaningful Use Info Meaningful Use Meaningful Use Diagnoses (Choose all that apply): None applicable Ischemic Stroke Statin Dosing Therapy Reference: STATIN DOSE THERAPY REFERENCE: * Patients > 75 years receive moderate or high dose statin therapy. * Patients 75 years or YOUNGER should receive HIGH intensity statin dose unless contraindicated. You will be required to document reason for non-treatment if statin daily dose does not meet guidelines. HIGH DOSE STATIN THERAPY DAILY Atorvastatin > than or = to 40 mg Rosuvastatin > than or = to 20 mg Amlodipine + Atorvastatin > than or = to 2.5/40 mg Ezetimibe + Simvastatin 10/80 mg Simvastatin 80mg Discharge Plan Admission Admit Date/Time: 11/20/23 05:13 Primary Reason for Your Visit: repeat Attending Provider: Kenna Chadwick Primary Care Provider: Michel Lehman Discharge Orders/Prescriptions Prescriptions: Continued Tablet 1 tab PO/SL DAILY Discontinued aspirin [Adult Low Dose Aspirin] 81 mg tablet,delayed release (DR/EC) 162 mg PO DAILY Referrals / Follow Up: Michel Lehman, [Primary Care Provider] - Disposition Disposition (needs filled in before D/C Order can be placed): Home, Self Care
[2023-11-22] MEDS: Senna/Docusate Sodium 1 Tablet PO (09:51)
[2023-11-22 11:00] VITALS: BP 115/74; PULSE 60; RESP 16; TEMP 36.2
== END 2023-11-22 12:15 | disposition home or self-care (01) | DRG 788 ==
PROVIDERS: Admitting Provider Obstetrics & Gynecology; PCP Student in an Organized Health Care Education/Training Program; Visit Provider Obstetrics & Gynecology
PROC: 10D00Z1 Extraction of Products of Conception, Low, Open Approach (ICD-10-PCS; CPT 59514; principal; 2023-11-20 07:15)
DX: O34.211 Maternal care for low transverse scar from previous cesarean delivery (principal); Z37.0 Single live birth; Z3A.39 39 weeks gestation of pregnancy
CPT/HCPCS: 59025; 59050; 85025; 85027; 86780; 86850; 86900; 86901; 99221; J7120; A4216; G0378; J2405